=== PATIENT | male | born 1990 | race Caucasian/White ===

== ENCOUNTER 2017-06-06 11:50 | Emergency (ER) | payer MEDICARE, MEDICAID ==
--- NOTE | 2017-06-06 13:46 | CT ---
NONCONTRAST CT HEAD: DATE: 06/06/17. HISTORY: Headache post seizure 1 day ago. The patient hit head yesterday. COMPARISON: 04/05/09. FINDINGS: There is no evidence of a hemorrhage, acute infarction, mass effect, or midline shift. Ventricular s ystem is normal in size, shape, and position. The visualized paranasal sinuses and mastoid air cells are clear. There has been no interval change from prior exam. IMPRESSION: No acute intracranial abnormality is demonstrated. POS: SMITHA
[2017-06-06] MEDS ORDERED: Ondansetron ODT 4 MG TAB ONE (14:17)
== END 2017-06-06 14:25 | disposition home or self-care (01) ==
LOC: ERS 11:50
DX: S00.81XA Abrasion of other part of head, initial encounter (principal); Z79.899 Other long term (current) drug therapy; W22.8XXA Striking against or struck by other objects, initial encounter
CPT/HCPCS: 70450; Q0162

== ENCOUNTER 2017-09-19 07:33 | Inpatient (IN) | payer MEDICARE, MEDICAID ==
[2017-09-19] MEDS ORDERED: Acetaminophen 325 MG TAB PO PRN (09:40)
[2017-09-19] MEDS ORDERED: Lorazepam 2 MG/ML VIAL SLOW IVP PRN (09:40)
[2017-09-19] MEDS ORDERED: Ondansetron HCl/PF 4 MG/2 ML Vial IVP PRN (09:40)
[2017-09-19] MEDS ORDERED: Ondansetron ODT 4 MG TAB PO PRN (09:40)
[2017-09-19 10:01] LABS: #Basophils 0.1 thou/uL (0.0-0.2); #Lymphocytes 2.1 thou/uL (1.20-3.40); #Monocytes 0.6 thou/uL (0.11-0.59); #Neutrophils 3.1 thou/uL (1.40-6.50); %Basophils 1.5 % (0.0-1.0); %Eosinophils 0.7 % (0.0-10.0); %Monocytes 10.6 % (0.0-10.0); %Neutrophils 52.2 % (42.0-75.0); Hemoglobin 13.9 g/dL (14.0-18.0); Mean Corpuscular HGB CONC 33.9 g/dL (32.0-36.0); Mean Corpuscular Hemoglobin 33.3 pg (27.0-31.0); Mean Corpuscular Volume 98.2 fl (80.0-94.0); Mean Platelet Volume 6.7 fL (7.4-10.4); Platelet Count 214 thou/uL (130-400); RBC Distribution Width 11.8 % (11.5-14.5); Red Blood Cell (RBC) Count 4.18 mill/uL (4.70-6.10)
[2017-09-19 10:06] VITALS: BMI 17.9
[2017-09-19 10:20] LABS: ALT (SGPT) 8 U/L (8-55); AST (SGOT) 13 U/L (5-34); Albumin 4.7 g/dL (3.5-5.0); Alkaline Phosphatase 59 U/L (40-150); Anion Gap 10 mmol/L (10-20); BUN (Urea Nitrogen) 15 mg/dL (8.9-20.6); Bilirubin, Total 0.8 mg/dL (0.2-1.2); Calc. Creatinine Clearance 91 mL/min (70-130); Calcium 9.7 mg/dL (7.8-10.44); Carbon Dioxide 27 mmol/L (22-29); Chloride 105 mmol/L (98-107); Estimated GFR-MDRD 87; Globulin 1.9 g/dL (2.4-3.5); Glucose 95 mg/dL (70-105); Potassium 3.9 mmol/L (3.5-5.1); Protein, Total 6.6 g/dL (6.0-8.3); Sodium 138 mmol/L (136-145)
--- NOTE | 2017-09-19 15:41 | HP ---
DATE OF SERVICE: 09/19/2017 LOCATION: [place] [id number]. HISTORY OF PRESENT ILLNESS: The patient has been referred by Dr. Sánchez for long-term video EEG monitoring in the epilepsy monitoring unit. The patient is a 27-year-old right-handed male with no significant past medical history except seizures, epilepsy, and migraine headaches. Seizures, they started around age 17. Initially when they started, he was seeing blurry vision and had headaches and blackout. Then noticed grand mal seizures started around age 18. When I had seen him in the clinic on 08/30/2016, he had mentioned his seizures as starting with aura, which he described as feeling ronald vu, crush to his head when he moves fast. Most of the times, he does not have an aura. He starts to swallow hard, sometimes spits and sometimes moans, has a dazed look, confused, and can hear, but unable to understand people. He is in and out of confusion, feels really cold, starts shaking, shivering, teeth clicking. He does not remember those episodes most of the times. Some of them he blacks out and passes out. No foaming at the mouth, has had drooling in the past, has vomited with grand mal seizures. He does lip smacking, no urinary incontinence, has had tongue biting more towards the front, but has had it on the sides of the tongue as well. The duration of the seizures would last from a few seconds to 1 -1/2 hours. Postictal, he does not remember; would have headache, but not always; muscle soreness; confusion. Duration of the postictal would last from minutes to whole day. No diurnal radiation. Triggers would be heat, stress, not eating, flashing light will give him headaches, has had zoning out for a few seconds. When I saw him on 08/01/2017, he had mentioned that he had following symptoms every day, lightheadedness, blurry vision, little headaches, losing track of things. He has episodes of zoning in and out that can last for up to 45 minutes. He also had blackout spells 1-2 a week, unsure about the duration. It can every day as well. He said that his mal seizures were less frequent; before he was having them 1-2 per week, but then he is having them one every few weeks. According to the patient and the mother, he is not having more partial seizures than grand mal seizures. His mother says that she has observed that he starts shaking, trembling, spitting, has a blank stare. The patient can hear her sometimes, but does not make any sense. He says his symptoms are more in the morning. Triggers again could be cold coffee and sleep deprivation. His history, short umbilical cord heart rate dropped to zero for a couple of instances. He had encephalitis when he was 16 months old. Normal development. FAMILY HISTORY: Mother has older sister with cerebral palsy with grand mal seizures. MEDICATIONS: His current antiepileptic medications include Lamictal 200 mg 1 tablet twice a day, Keppra 750 mg 2 tablets twice a day. Previous antiepileptic medications, Dilantin and Trileptal. He was on Trileptal for the longest. Aptiom, which did not help. The patient had an epilepsy monitoring unit done at age 18, and according to the patient, he had 3 episodes during that time and was told that they are coming from the right hemisphere from the partial scar tissue. The patient had previous EEG done, which was read by Dr. Epstein in 2013, per report some generalized spike in wave activity of approximately 2 Hz triggered by drowsy state. Post-hyperventilation and photic stimulation does have an epileptiform appearance. PAST MEDICAL HISTORY: As mentioned in HPI. PAST SURGICAL HISTORY: None. 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 FAMILY HISTORY: As mentioned in the HPI. SOCIAL HISTORY: The patient mentioned today to the nurse that he has been using marijuana. No smoking or alcohol use. He does not work and he does not drive. He has high school diploma. CURRENT MEDICATIONS: As mentioned in the HPI. The patient is on Lamictal and Keppra. ALLERGIES: No known drug allergies. REVIEW OF SYSTEMS: As mentioned in the HPI, otherwise negative. Patient denies any symptoms currently. PHYSICAL EXAMINATION: VITAL SIGNS: Temperature 98.1, pulse rate 75, respiratory rate 16, O2 sats 97% on room air, blood pressure 101/61. GENERAL: Well-developed, well-nourished male in no apparent distress. HEENT: Normocephalic, atraumatic. Normal sclerae. NECK: Supple. RESPIRATORY: Clear to auscultation bilaterally. CARDIOVASCULAR: Regular rate and rhythm. NEUROLOGICAL EXAM: The patient is awake, alert, oriented x3. Speech and language intact. No aphasia, no dysarthria noted. Cranial nerves: Pupils are reactive to light bilaterally. Extraocular movements are intact. Visual evans are intact bilaterally. No facial droop noted. Facial sensation intact and symmetric bilaterally. Sternocleidomastoid and trapezius 5/5 bilaterally. Motor: Normal tone and bulk, 5/5 strength in bilateral upper and lower extremities. Sensation intact to fine touch throughout. Reflexes are 2+ throughout. Plantar response is flexion bilaterally. Negative Bautista sign bilaterally. No clonus. Cerebellar normal nhepnv-fuuz-oggcac and ghcs-fa-gzbc test bilaterally. Gait and Romberg not tested. LABORATORY DATA: CBC with normal white cell count, hemoglobin 13.9, hematocrit 41, platelet count normal. Chemistry with normal electrolytes. LFTs normal. Keppra level 52.8. Lamictal level pending. IMAGING: No imaging done this admission. IMPRESSION: 1. Medically refractory epilepsy. 2. Intractable complex partial epilepsy with generalization. PLAN: 1. The patient is admitted for long-term video EEG monitoring in the epilepsy monitoring unit. The patient continues to have frequent complex partial seizures even after being on several antiepileptic medications in the past. He will benefit with long-term video EEG monitoring to further characterize his seizures and localize and lateralize his seizures. This will help us to decide further treatment in regard to selecting appropriate antiepileptic medication and to find out whether he qualifies for epilepsy surgery or whether he may benefit with stimulation devices like VNS. 2. We will stop his antiepileptic medications from tonight. He had his last dose of his seizure medications this morning, so we will stop it starting tonight. 3. Patient will be placed on p.r.n. Ativan for prolonged seizures or multiple qzrx-tt-zflz seizures. 4. Patient will be sleep deprived starting tonight 5. Hyperventilation and photic stimulation will be performed daily. 6. Patient will be also on continuous cardiac monitoring, along with continuous video EEG monitoring. 7. Patient will be on seizure precautions and fall precautions. 8. Vital signs and neuro checks every 4 hours. 9. Patient will be on sequential compression devices for DVT prophylaxis. 10. Regular diet. 11. We will continue to monitor the patient to capture as many of his habitual seizure episodes as possible. This was discussed in detail with the patient, his mother, and the nurse taking care of the patient. RAEGAN
--- NOTE | 2017-09-20 16:37 | PRG ---
DATE OF SERVICE: 09/20/2017 LOCATION: [facility], . SUBJECTIVE HISTORY: The patient had two of his habitual seizure episodes today. Please see the vide o EEG note for full description of the events. He received Ativan with the first seizure. Currently , he denies any new symptoms. He is awake, alert, and able to answer questions appropriately. OBJECTIVE HISTORY: VITAL SIGNS: Temperature 98.2, pulse rate 89, respiratory rate 16, O2 sats 94% on room air, blood pr essure 110/65. GENERAL: Well-developed and well-nourished male in no apparent distress. RESPIRATORY: Clear to auscultation bilaterally. CARDIOVASCULAR: Regular rate and rhythm. NEUROLOGIC: The patient is awake, alert, and oriented. Speech and language is intact. No aphasia, no dysarthria noted. Cranial nerves: Pupils are reactive to light bilaterally. Extraocular movemen ts are intact. Visual evans are intact bilaterally. No facial droop noted. Facial sensation intac t and symmetric bilaterally. Motor: Normal tone and bulk, 5/5 strength in bilateral upper and lower extremities. Sensation is intact to fine touch throughout. Reflexes are 2+ throughout. Cerebellar ; normal rubwyj-wzhb-zpcleh and hyvc-eq-mrlx test bilaterally. Gait and Romberg not tested. LABORATORY DATA: No new labs to review. IMAGING: No imaging to review. IMPRESSION: 1. Intractable complex partial epilepsy with generalization. 2. Medically refractory epilepsy. PLAN: 1. We will continue to monitor the patient with long-term video EEG monitoring in the epilepsy [facility] unit to capture more of his habitual seizures to see if we can further localize and lateralize his seizures which will further help us in regards to selecting appropriate antiepileptic medication and to see if he qualifies for epilepsy surgery or whether he may benefit with devices like vagus ner ve stimulator. 2. We will continue to hold his antiepileptic medications tonight. 3. Patient is on p.r.n. Ativan for prolonged seizures or multiple back to back seizures. 4. The patient will not be sleep deprived tonight. 5. Hyperventilation and photic stimulation daily. 6. Patient is on continuous cardiac monitoring along with continuous video EEG monitoring. 7. He is on seizure precautions and fall precautions. 8. Vital signs and neuro checks every 4 hours. 9. Patient is on SCDs for DVT prophylaxis. 10. Regular diet. 11. EEG findings on day 1 and the entire treatment plan discussed in detail with the patient, his mo ther and the nurse taking care of the patient. I spent more than 25-30 minutes discussing the findings and the treatment plan with them.
[2017-09-21] MEDS: lamoTRIgine 100 MG TAB PO SCH (20:39)
[2017-09-21] MEDS: levETIRAcetam 500 MG TAB PO SCH (20:40)
[2017-09-22] MEDS: levETIRAcetam 500 MG TAB PO SCH (07:57)
[2017-09-22] MEDS: lamoTRIgine 100 MG TAB PO SCH (07:57)
--- NOTE | 2017-09-22 11:04 | PRG ---
DATE OF SERVICE: 09/21/2017 LOCATION: [facility]. SUBJECTIVE HISTORY: The patient did not have any more seizures overnight or today. He remained stable with no acute events overnight. So far, he only had two of his habitual seizures yesterday and during daytime did not have any more seizures. Currently, he denies any new symptoms. He is awake, alert, and able to answer questions appropriately. OBJECTIVE HISTORY: VITAL SIGNS: Temperature 98.7, pulse rate 70, respiratory rate 14, O2 sats 96% on room air, blood pressure 105/58. GENERAL: Well-developed, well-nourished male in no apparent distress. RESPIRATORY: Clear to auscultation bilaterally. CARDIOVASCULAR: Regular rate and rhythm. NEUROLOGIC: The patient is awake, alert, oriented. Speech and language intact. No aphasia, no dysarthria noted. Cranial nerves: Pupils are reactive to light bilaterally. Extraocular movements are intact. Visual evans are intact bilaterally. No facial droop noted. Facial sensation intact and symmetric bilaterally. Motor: Normal tone and bulk, 5/5 strength in bilateral upper and lower extremities. Sensation intact to fine touch throughout. Reflexes are 2+. Cerebellar normal mhfchp-rzrt-lnkbxb and itjz-ng-ootk test bilaterally. Gait and Romberg not tested. LABORATORY DATA: No new labs to review. IMAGING: No imaging during this admission. I reviewed patient's old records. The patient had 4-day of EMU stay at [facility]. During that admission, the patient had one complex partial seizure, which was manifested by dizziness, alteration of awareness, left hand automatism. The seizure onset was localized to the right parietal region, which spread into the right temporoparietal area, only one seizure was reported. He had interictal presence of generalized and multifocal epileptiform discharges, bilateral temporal slowing, right hemispheric attenuation which indicated bitemporal cerebral dysfunction, right hemispheric cortical dysfunction and multiple regions of underlying epileptogenic potential. He had an MRI of the brain performed, which showed some scattered T2 prolongation foci in the subcortical white matter in the bilateral frontal lobes. No associated enhancing abnormality or restricted diffusion. Findings were described as nonspecific and differential included gliosis, demyelinating disease, chronic migraine, Lyme disease or vasculitis. Since the patient had history of encephalitis in the past, it was thought that his abnormalities in the MRI were related to a history of encephalitis. It appeared that patient has been on Dilantin and Trileptal in the past. IMPRESSION: 1. Intractable complex partial epilepsy with generalization. 2. Medically refractory epilepsy. PLAN: 1. We will continue to monitor the patient with long-term video EEG monitoring in the epilepsy monitoring unit to capture more of his habitual seizures to see if we can further localize and lateralize his seizures, which will further guide us in selecting appropriate antiepileptic medication and to see if he qualifies for epilepsy surgery or whether he may benefit with devices like vagus nerve stimulator. 2. We will resume his home medication starting tonight including Lamictal and Keppra. 3. The patient is on p.r.n. Ativan for prolonged seizures and multiple back to back seizures. 4. The patient will not be sleep deprived tonight. 5. Hyperventilation and photic stimulation daily. 6. The patient is on continuous cardiac monitoring along with continuous video EEG monitoring. 7. He is on seizure precautions and fall precautions. 8. Vital signs and neuro checks every 4 hours. 9. He is on SCDs for DVT prophylaxis. 10. Regular diet. 11. EEG findings on day 2 and the entire treatment plan was discussed in detail with the patient, his mother who was available on the phone and the nurse taking care of the patient. I spent more than 25-30 minutes discussing the findings and the treatment plan with them. RAEGAN
[2017-09-22 11:27] VITALS: BP 98/66; TEMP 98.1
--- NOTE | 2017-09-23 02:09 | DIS ---
DATE OF DISCHARGE: 09/22/2017 LOCATION: [facility]. HISTORY OF PRESENT ILLNESS: Please see my dictated history and physical note for full details. BRIEF HOSPITAL STAY: The patient was admitted from 09/19/2017 to 09/22/2017. He was admitted to the epilepsy monitoring unit for long-term video EEG monitoring. His home antiepileptic medications inc luding Lamictal and Keppra where held upon admission and they were resumed the night before the day o f discharge. He was placed on p.r.n. Ativan for prolonged seizures and he needed Ativan once for his first seizure. He was sleep deprived initially. Hyperventilation and photic stimulation were perfo rmed daily. He was placed on continuous cardiac monitoring as well. He was placed on seizure precau tions and fall precautions. Vital signs and neuro checks were performed every [address] d on SCDs for DVT prophylaxis. He was placed on regular diet. Please see the video EEG report for f ull detail of his EMU stay. The patient had two of his habitual seizures, which appear to be complex partial in nature, which were difficult to lateralize and localize on the EEG. They appeared to be more generalized and diffuse at onset. He continued to have frequent and abundant epileptiform activ ity in either temporal regions, at times independent and at times synchronous in nature, they were al so multifocal and generalized in nature. They were present throughout his recording during all stage s of EEG, at times they were runs of epileptiform activity noted in either temporal regions more in t he right temporal region for several seconds with no clinical change. He also had polyspikes during his sleep with no clinical change. The patient had normal background rhythm, but had intermittent sl owing in either temporal regions, more in the right temporal region suggestive of nonspecific dysfunc tion. His epileptiform activity appeared to be slightly better after putting him back on his home an tiepileptic medications since the patient had achieved maximum benefit through his hospital stay, it was decided that he can be safely discharged home. The patient remained asymptomatic on the day of d ischarge with no acute events. Neurological exam on discharge, the patient was awake, alert, oriente d x3. Speech and language is intact. Cranial nerves: Pupils reactive to light bilaterally. Extrao cular movements are intact. Visual evans were full bilaterally. No facial droop noted. Facial sen sation is intact and symmetric bilaterally. Motor: Normal tone and bulk, 5/5 strength in upper and lower extremities. Sensation is intact to fine touch throughout. Coordination is intact in upper an d left lower extremities. Gait is normal. LABORATORY DATA: CBC showed mildly low hemoglobin and hematocrit. Chemistry with normal electrolyte s. Normal LFTs. Lamictal level was 11.5, which was within therapeutic range. Keppra level was 52.8 again within therapeutic range. IMAGING: No imaging done during this admission. DISPOSITION: Discharged to home. CONDITION: Stable. DISCHARGE DIAGNOSIS: Intractable, medically refractory complex partial epilepsy with generalization. DISCHARGE MEDICATIONS: Advised the patient to continue with his home antiepileptic medications inclu ding Lamictal and Keppra at the same doses. No changes made upon discharge. No new medication added at this time. FOLLOWUP: The patient was advised to follow up with Dr. Sánchez in 1 to 2 weeks for management of se izures. ACTIVITY: No driving and seizure precautions explained in detail to the patient. DIET: Diet upon discharge is regular. RECOMMENDATIONS: Based on the EEG finding, it appears that patient may not be a good candidate for e pilepsy surgery. The patient may benefit with a trial of other antiepileptic medications if not trie d before including Topamax, Depakote, ONFI/clobazam, and benzodiazepine. The patient may also benefi t with the vagal nerve stimulator. This was discussed and was advised to follow up with Dr. Sánchez to see if these options are feasible.
--- NOTE | 2017-09-26 14:46 | EEG ---
Referring Physician: DR. ALEXANDRA GILL EEG # EMU 18-04 PROCEDURE: Video EEG report NAME OF PATIENT: Dionicio Hale DATE OF : 1990 LOCATION: [place] [address] STUDY TYPE: Video electroencephalogram report. STUDY DAY 1: 09/19/2017, 9:30 am to 09/20/2017, 10:00 am Study reviewed and interpreted by me. STUDY QUALITY: This study is of excellent quality for interpretation. STUDY REPORT: This is a 22-channel digital EEG recording utilizing 10-20 international electrode placement system. BACKGROUND RHYTHM: The patient's background rhythm consists predominantly of moderate amplitude 8 Hz rhythm which is symmetric and reactive bilaterally. It is mixed with low amplitude beta activity and myogenic activity representing frontalis and temporalis muscles bilaterally. There is intermittent slowing noted in either temporal region and at times more diffuse in nature, lasting for 1-2 seconds. DROWSINESS: Subject is able to attain periods of drowsiness with diffuse theta activity. SLEEP: Subject is able to attain non-REM sleep with normal sleep potentials. PHOTIC STIMULATION: No photic drive seen. HYPERVENTILATION: Results in no significant change in the background activity. INTERICTAL EEG: The patient has frequent, spike and slow wave activity and at times sharp transients, moderate to high amplitude noted in both temporal regions at times independent and at times together at the same time. At times they appeared to be more diffuse and generalized in nature, they appeared to be 2 Hz. They are seen during awake, drowsy, sleep stages, after photic stimulation and some during hyperventilation. They are more frequent and periodic during drowsy and sleep stages. When they are more diffuse and generalized, higher amplitude is seen in the left hemisphere. During drowsy and sleep stages there are runs of frequent spike and wave activity in the right temporal region lasting for several seconds. There is no significant clinical change with this interictal epileptiform activity. ICTAL EVENT: The patient had 1 ictal event on day 1. Clinically, patient was sitting in the bed, holding his phone with his left hand and looking at his cell phone. This happened on 09/20/2017 at 9:43:34. Very mild facial contortion was noted to the left. After that, the patient puts his phone down, looks at the TV and looks around. He then starts breathing heavy intermittently, has swallowing movements of his mouth for a few seconds. It appears that he touches the wires with his left hand. During this time he intermittently appears to be confused where at times he is able to tell his name and answer the questions asked by the nurse and at times he is not able to answer those questions. Intermittently he is able to cooperate with the nurse. During this entire time his eyes are open. He is awake. He has intermittent purposeful movements where he covers himself with the blanket, but he appears to be intermittently confused. Around 9:47:33 he starts having trembling, shaking movements predominantly of his upper torso and upper extremities. Does not appear to be tonic clonic in nature. It continues to occur intermittently for several minutes. During this time, he continues to cover himself with the blanket, but is not able to answer questions asked by the nurse. Around 9:52:53 he is able to answer questions asked by the nurse. Because he continues to have the trembling, shaking movements he gets Ativan at 9:56:17 and his seizure ends at 9 :56:57, so it appears that at roughly lasted for 13 minutes. EEG CHANGES: EEG starts with the normal background activity followed by increased myogenic activity seen diffusely with the facial contortion followed by diffuse theta activity mixed with alpha and myogenic activity. This is followed by diffuse theta activity with spikes in either temporal region. This is followed by rhythmic 3-4 Hz activity in both temporal regions at 9:44:53, which last for 13-14 seconds which is then followed by nonrhythmic diffuse theta activity with intermittent spikes in both temporal regions and this continues until the end of the seizure activity. With the trembling movement there is increased myogenic activity noted and then once the trembling stops there is decrease in myogenic activity, but it is mixed with theta activity faster frequency with intermittent spikes in both temporal regions. It is hard to localize the seizure and it is hard to say whether it is originating from the right or the left temporal region. EK per minute. IMPRESSION: Day 1 Video EEG Recording shows that patient has normal background rhythm of 8 Hz. He has slowing noted in both temporal regions and at times diffuse slowing noted which could suggest bitemporal dysfunction. Interictal EEG shows frequent epileptiform activity in both temporal regions, at times independent and at times synchronous, at times diffuse and generalized with higher amplitude in the left hemisphere. The epileptiform activities are noted during all the stages including awake, drowsy and sleep stages, photic stimulation and hyperventilation. There are more prominent during drowsy and sleep stages and during drowsiness there are runs of frequent semi periodic epileptiform activity in the right temporal region. The patient had 1 ictal event as described above on day 1, which was difficult to localize to either temporal region. We will continue to monitor the patient and record more seizure activity to see if we can lateralize and localize his seizures. The EEG findings were discussed in detail with the patient and his mother. Diabetes Trainer: KAREEN Chucking And Boring Machine Operator: [email or web address] CARLIN
--- NOTE | 2017-09-27 11:41 | EEG ---
Referring Physician: DR. ALEXANDRA GILL [facility] [place] # EMU 19-04 VIDEO EEG REPORT PATIENT NAME: Dionicio Hale : 1990 # [id number] LOCATION: [place] [id number] REPORT TYPE: Video Electroencephalogram Report Study Day 2: 09/20/17, 10:00 AM - 09/21/17 10:00 AM STUDY QUALITY: Study is of excellent quality for interpretation. STUDY REVIEWED AND INTERPRETED BY ME. STUDY REPORT: This is a 22 channel digital EEG recording utilizing ten-twenty international electrode placement system. WAKEFULNESS/ AWAKE STATE: During wakefulness the background activity consists of 8-9 hertz, moderate amplitude which is symmetric and reactive. It is mixed with low amplitude beta activity and with myogenic activity representing frontalis and temporalis muscles bilaterally. The patient has slowing slowing noted intermittently in either temporal regions, at times the slowing is noted for several seconds, at times seen more in the right hemisphere than left temporal region. DROWSY STAGE: The subject is able to attain periods of drowsiness with diffuse theta activity. SLEEP: The subject is able to attain non-REM sleep and REM sleep with normal sleep potentials. PHOTIC STIMULATION: No photic drive seen. HYPERVENTILATION: Results in some theta activity. INTERICTAL EEG: Day 2 interictal EEG shows frequent, abundant, high amplitude spike and slow wave activity in either temporal region, at time independent of each other and at times synchronous. At times the spike and slow wave activity is multifocal in nature and at times they become diffuse and generalized. This epileptiform activity is seen during awake stage, drowsy, sleep stage, during photic stimulation, during hyperventilation and posthyperventilation. At times there are rhythmic runs of spikes noted in either temporal region, at times lasting for 10-11 seconds, seen in more in the right temporal region than left temporal region. The epileptiform activity is more prominent during drowsy and sleep stages. At times poly spikes are noted and they become more frequent during sleep stage lasting for 5-6 seconds. During this interictal epileptiform activity no clinical change is noted with the epileptiform activity. ICTAL EVENTS: The patient had 1 ictal event on 09/20/2017 at 14:08:54. The patient was sitting in the bed looking at his cell phone and then he stopped looking at his cell phone and stared and then is looking around, appeared to be confused, some fidgeting with is hands is noted. There is no tonic-clonic activity noted. No trembling or shaking is noted during this episode. Towards the end he has some deep breathing noted and then he cover himself with the blanket around 14:09:28. So roughly it lasts about 1 minute. EEG during this event starts with normal background activity followed by increased myogenic activity which is diffuse in nature followed by rhythmic 3 hertz moderate amplitude activity, rhythmic 3 hertz moderate amplitude activity which is diffuse lasting for 2-3 seconds which is then followed by increased fast beta activity, 13 hertz which is, again, diffuse in nature for a few seconds which is then mixed with myogenic activity and then the EEG returns to slow background with spikes noted at F8, F7, T4, T5. EK per minute. IMPRESSION: On Day 2 Video EEG Recording the patient's EEG shows alpha background rhythm. He continues to show epileptiform activity. EEG shows epileptiform activity in the either temporal region, at times independent of each other and at times synchronous. At times they appear to be multifocal in nature and at times they appear diffuse and generalized in nature. At times runs of rhythmic epileptiform activity is noted in either temporal region, right more than left, lasting for 10-11 seconds with no clinical change. This epileptiform activity is seen during awake, drowsy, sleep stages, photic stimulation, hyperventilation and posthyperventilation and they are more prominent during drowsy and sleep stages with poly spikes noted during sleep. No clinical changes noted with interictal epileptiform activity. The patient had 1 ictal event on Day 2 Video EEG Recording, as described above, which appears to be more generalized on onset and not able to localize or lateralize the ictal event. So far patient has had only 2 habitual ictal events which are difficult to localize and lateralize based on the EEG. And as mentioned before, patient interictal EEG continues to show epileptiform activity in either temporal region and at times multifocal and generalized in nature. There is also slowing noted in either temporal region which would suggest nonspecific dysfunction in those regions. Will continue to monitor the patient. Traffic Survey Technician: KAREEN Prover: [email or web address] [email or web address]
--- NOTE | 2017-09-27 14:13 | EEG ---
Referring Physician: DR. ALEXANDRA GILL EEG # EMU 18-04 PROCEDURE: Video EEG Report NAME OF PATIENT: Dionicio Hale : 1990 . LOCATION: [place] [address] STUDY TYPE: Video Electroencephalogram Report STUDY DATE: , 09/21/2017 10:00 a.m. until 09/22/2017, 11.00 a.m. STUDY QUALITY: Study is of excellent quality for interpretation. Study has been reviewed and interpreted by me. REPORT: This is a 22-channel digital EEG recording utilizing 10-20 international electrode placement system. BACKGROUND RHYTHM: The patient continues to have normal background rhythm of 8- 9 Hz mixed with low amplitude beta activity and myogenic activity. EEG continues to show intermittent slowing in either temporal regions, more prominent slowing noted in the right temporal region. DROWSY STATE: Subject is able to attain periods of drowsiness with diffuse theta activity. SLEEP : Subject is able to attain sleep with normal sleep potentials. PHOTIC STIMULATION: No photic drive seen. HYPERVENTILATION: Results in some theta activity. INTERICTAL EEG: Patient's EEG during interictal periods continues to show similar changes as recorded previously. He continues to show high amplitude spike and slow wave discharges, which are frequent and abundant, seen in either temporal regions at times independent and at times synchronous. They also appeared to be multifocal and generalized in nature. They are seen during all the stages and throughout the recording. At times there are runs of rhythmic spike activity noted in either temporal regions, more in the right temporal region lasting for several seconds without any clinical change. Polyspikes are noted during sleep stages for a few seconds. Again, no clinical change noted with that. ICTAL EEG: On Day 3 the patient did not have any ictal events. EK per minute. BRIEF SUMMARY OF VIDEO ELECTROENCEPHALOGRAM: The patient was admitted from 09/19/2017 until 09/22/2017. During this video EEG recording, the patient's background rhythm shows normal alpha activity which is symmetric and reactive. He continues to have normal drowsy and sleep stages. Patient does have intermittent slowing noted in either temporal regions , more prominent slowing noted in the right temporal region, suggestive of nonspecific dysfunction in the temporal regions. At times, diffuse slowing noted for a few seconds. The interictal EEG showed epileptiform activity in either temporal regions at times independent and at times synchronous in nature , they also appeared to be multifocal and generalized in nature. At times runs of rhythmic epileptiform activity noted in either temporal regions, more noted in the right temporal region, lasting for several seconds with no clinical change. This epileptiform activity is noted during all the stages including awake, drowsy and sleep stages and during photic stimulation, hyperventilation and post-hyperventilation. They are abundant and frequent in nature. Poly spikes are noted during sleep with no clinical change. During his stay, the patient had two ictal events which appeared to be in more diffuse and generalized at onset and difficult to localize or lateralize for seizures. They appeared to be more complex partial in nature, where he appeared to be confused, some fidgeting noted with his hands, had swallowing movements. No clear other automatisms noted during the first event patient had trembling movement and shaking of his upper torso and upper extremities which were not associated with epileptiform activity on the EEG, they were more associated with myogenic activity. As mentioned before, patient's epileptiform activity appears to be in either temporal regions, multifocal and generalized in nature. Would suggest that there are a lot areas with epileptogenic potential. His two complex partial seizures very difficult to localize and lateralized on the EEG. RECOMMENDATIONS: Based on EEG findings, it appears that patient would not be a good surgery candidate for epilepsy surgery since his epileptiform activity appears to be more multifocal and not localized or lateralized to one single region. Patient may benefit with broad spectrum antiepileptic medications including Topamax, Depakote, Clobazam, Onfi Benzo. Patient may also benefit with vagal nerve stimulator. The patient's epileptiform activity is very little better and slightly less frequent with antiepileptic medication on board. Field Captain: KAREEN Speech Pathology Assistant: [email or web address] [email or web address]
== END 2017-09-22 16:12 | disposition home or self-care (01) | DRG 101 ==
LOC: IMCU/EMU 07:33 → EDSTATUS 08:00
PROVIDERS: ADMIT Student in an Organized Health Care Education/Training Program; ATTEND Student in an Organized Health Care Education/Training Program
PROC: 4A10X4Z Monitoring of Central Nervous Electrical Activity, External Approach (ICD-10-PCS; principal; 2017-09-19)
DX: G40.219 Localization-related (focal) (partial) symptomatic epilepsy and epileptic syndromes with complex partial seizures, intractable, without status epilepticus (principal)
CPT/HCPCS: 36415; 80053; 80175; 80177; 85025; 95951; 95957

== ENCOUNTER 2018-07-31 10:25 | Emergency (ER) | payer MEDICARE, MEDICAID ==
[2018-07-31 11:00] LABS: #Eosinphils 0.1 thou/uL (0.0-0.7); #Lymphocytes 1.6 thou/uL (1.20-3.40); #Monocytes 0.5 thou/uL (0.11-0.59); #Neutrophils 5.9 thou/uL (1.40-6.50); %Basophils 0.1 % (0.0-1.0); %Eosinophils 0.9 % (0.0-10.0); %Lymphocytes 19.7 % (21.0-51.0); %Monocytes 5.7 % (0.0-10.0); %Neutrophils 73.7 % (42.0-75.0); Hemoglobin 14.4 g/dL (14.0-18.0); Mean Corpuscular Hemoglobin 31.7 pg (27.0-31.0); Mean Corpuscular Volume 95.9 fL (78.0-98.0); Mean Platelet Volume 6.8 fL (7.4-10.4); Platelet Count 250 thou/uL (130-400); Red Blood Cell (RBC) Count 4.54 mill/uL (4.70-6.10)
[2018-07-31] MEDS ORDERED: levETIRAcetam In NaCl (Iso-Os) 1,000 MG in Premix Bag 1 BAG IVPB SCH (11:00)
[2018-07-31 11:27] LABS: ALT (SGPT) 12 U/L (8-55); AST (SGOT) 21 U/L (5-34); Albumin 4.8 g/dL (3.5-5.0); Alkaline Phosphatase 101 U/L (40-150); Anion Gap 21 mmol/L (10-20); BUN (Urea Nitrogen) 14 mg/dL (8.9-20.6); Bilirubin, Total 0.2 mg/dL (0.2-1.2); Calc. Creatinine Clearance 0 mL/min (70-130); Calcium 9.5 mg/dL (7.8-10.44); Carbon Dioxide 15 mmol/L (22-29); Chloride 107 mmol/L (98-107); Estimated GFR-MDRD 64; Globulin 2.2 g/dL (2.4-3.5); Glucose 176 mg/dL (70-105); Potassium 4.3 mmol/L (3.5-5.1); Sodium 139 mmol/L (136-145); Valproic Acid (Depakene) Less than 12.5 ug/mL (50.0-100.0)
[2018-07-31 13:03] LABS: Bilirubin Negative (Negative); Blood, Urine Small (Negative); Clarity CLEAR (Clear); Glucose, Urine (Dipstick) 100 mg/dL (Negative); Leukocyte Negative (Negative); Nitrite Negative (Negative); Protein, Urine (Dipstick) 30 mg/dL (Neg-Trace); Specific Gravity, Urine 1.016 (1.002-1.036); Urobilinogen 0.2 mg/dL (0.2-1.0)
[2018-07-31 13:07] LABS: Bacteria/HPF None Seen HPF (None Seen); Hyaline Casts/LPF 7-10 HYALINE CAST LPF (0-3 Hyaline); Pathc Cast-AUWi Flag 1.45 (0-2.49); RBC/HPF 0-3 HPF (0-3); Squamous Epithelial 0-3 HPF (0-3); WBC/HPF None Seen HPF (0-3)
[2018-07-31 13:23] LABS: Crystals/HPF 1+ URIC ACID HPF (Negative)
== END 2018-07-31 12:52 | disposition home or self-care (01) ==
LOC: ERS 10:25
DX: G40.909 Epilepsy, unspecified, not intractable, without status epilepticus (principal); Z79.899 Other long term (current) drug therapy
CPT/HCPCS: 80053; 80164; 80177; 80185; 81003; 81015; 85025; 96365; J1953